=== PATIENT | male | born 1945 | race Caucasian/White ===

== ENCOUNTER 2016-03-09 16:50 | Emergency (ER) | payer MEDICARE, OTHER | END 2016-03-09 18:32 | disposition home or self-care (01) | LOC: ER 16:50 | DX: R05 Cough (principal); J01.00 Acute maxillary sinusitis, unspecified; J01.10 Acute frontal sinusitis, unspecified; Z79.84 Long term (current) use of oral hypoglycemic drugs; Z79.899 Other long term (current) drug therapy; Z79.01 Long term (current) use of anticoagulants; Z87.891 Personal history of nicotine dependence | CPT/HCPCS: 71020 ==